=== PATIENT | female | born 1970 | race Two or more races ===

== ENCOUNTER 2022-09-09 21:32 | Emergency (ER) | payer SELFPAY ==
[~2022-09-09] VITALS: Ht 162.6 cm; Wt 94.7 kg
[2022-09-09 21:49] VITALS: BP 155/88
== END 2022-09-10 04:32 | disposition left against medical advice (07) ==
LOC: ER 21:32
DX: M25.571 Pain in right ankle and joints of right foot (principal); Z53.21 Procedure and treatment not carried out due to patient leaving prior to being seen by health care provider